=== PATIENT | female | born 1980 | race African-American/Black ===

== ENCOUNTER 2022-09-27 13:26 | Emergency (ER) | payer MEDICAID ==
[~2022-09-27] VITALS: Ht 175.3 cm; Wt 150.0 kg
[2022-09-27] MEDS ORDERED: ASPIRIN 81MG TABLET PO ONE (20:45)
[2022-09-27 22:47] LABS: BASOPHILS % 1.1 % (0.0-2.0); EOSINOPHILS % 1.5 % (0.0-5.0); HEMATOCRIT. 37.6 % (36.0-48.0); HEMOGLOBIN. 12.7 g/dL (12.0-16.0); LYMPHOCYTES % 36.9 % (20.0-50.0); MONOCYTES % 13.4 % (2.0-8.0); NEUTROPHILS % 47.1 % (40.0-76.0); PLATELET 351 x1000/uL (130-400); RED BLOOD CELL COUNT 4.89 mill/uL (4.2-5.4); RED CELL DISTRIBUTION WIDTH 23.5 % (11.6-14.6)
[2022-09-27 23:07] LABS: CHLORIDE 98 mEq/L (98-107)
[2022-09-27 23:32] LABS: PLATELET ESTIMATE NORMAL
[2022-09-28] MEDS ORDERED: ASPIRIN 81MG TABLET PO NR (01:45)
[2022-09-28 02:16] VITALS: BP 169/69
[2022-09-28 02:23] LABS: CLARITY URINE CLEAR (CLEAR); COLOR URINE YELLOW (YELLOW); KETONES URINE NEGATIVE (NEGATIVE); LEUKOCYTE ESTERASE URINE NEGATIVE (NEGATIVE); NITRITE URINE NEGATIVE (NEGATIVE); OCCULT BLOOD URINE NEGATIVE (NEGATIVE); PROTEIN URINE NEGATIVE (NEGATIVE); SPECIFIC GRAVITY URINE 1.027 (1.005-1.030)
== END 2022-09-28 03:30 | disposition home or self-care (01) ==
LOC: ER 13:26
DX: J06.9 Acute upper respiratory infection, unspecified (principal); R07.89 Other chest pain; E11.9 Type 2 diabetes mellitus without complications; G47.30 Sleep apnea, unspecified; F17.210 Nicotine dependence, cigarettes, uncomplicated; Z20.822 Contact with and (suspected) exposure to COVID-19
CPT/HCPCS: 36415; 71045; 80053; 81003; 83036; 83880; 84484; 85025; 87426; 87804; 93005; 99285; C9803; Z7610